=== PATIENT | female | born 2000 | race Caucasian/White ===

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

== ENCOUNTER → 2021-11-13 01:52 | Outpatient (CLI) | payer BC, MEDICAID, SELFPAY ==
[2021-11-13 11:13] LABS: SARS-CoV-2 RNA PCR Negative
== END ==
PROVIDERS: PCP Family Medicine; Visit Provider Surgery
DX: K82.8 Other specified diseases of gallbladder (principal); Z01.812 Encounter for preprocedural laboratory examination; Z20.822 Contact with and (suspected) exposure to COVID-19
CPT/HCPCS: C9803; U0003; U0005

== ENCOUNTER 2021-11-13 08:38 | Outpatient (CLI) | payer BC, MEDICAID, SELFPAY ==
[2021-11-13 09:14] LABS: Alanine Aminotransferase 16 U/L (4-35); Alkaline Phosphatase 104 U/L (38-126); Amylase 97 U/L (30-110); Aspartate Amino Transferase 18 U/L (14-36); Bilirubin,Total 0.4 mg/dL (0.2-1.3); Lipase 54 U/L (23-300)
== END 2021-11-13 08:39 | disposition home or self-care (01) ==
LOC: ANHSURGERY 08:43
PROVIDERS: PCP Family Medicine; Visit Provider Surgery
DX: K82.8 Other specified diseases of gallbladder (principal); Z01.818 Encounter for other preprocedural examination
CPT/HCPCS: 36415; 80076; 82150; 83690; 86850; 86900; 86901

== ENCOUNTER 2021-11-16 02:11 | Day surgery (SDC) | payer BC, MEDICAID, SELFPAY ==
--- NOTE | 2021-11-12 16:29 | SUR.PREOP ---
Report to the Outpatient Waiting Room, entrance under the green pavilion located off [facility], at time 11:30AM on date 11/16/21. OR Time: 1:30PM. - You and your visitor will be asked a series of questions to screen for COVID 19 for your protection. - A mask is required within the hospital. Preoperative COVID Testing Requirements: No COVID Test needed if: (proof is required; if not received patient will have Rapid Test prior to entry) - Patient has received COVID Vaccine at least 14 days prior to procedure date or - Patient has positive COVID test result within last 90 days of surgery date. COVID Test needed if above criteria is not met If not COVID vaccinated a COVID test must be conducted within 72 hours of surgery and patient is asked to isolate self from time of testing until procedure. You will go to the [facility] for your COVID testing. The [facility] Testing site is located at the corner of [address] [facility]. You will only be called if COVID results are positive and your surgeon may reschedule your elective surgery date. Patients may have clear liquids (water, carbonated beverages, clear teas, apple juice) until 3 hours prior to surgery with a maximum of 20 ounces. - NO CLEAR LIQUIDS AFTER 10:30AM - No food from midnight until time of surgery - Infants may have breast milk until 4 hours before surgery, formula 6 hours prior to surgery. - Children will be allowed to drink immediately following surgery. If applicable, please bring a bottle or sippy cup to assist with drinking. Juice, water, soda, and popsicles are readily available. For infants on formula, please bring formula the day of surgery. Pacifiers are allowed. Take the following medications with a SIP of water the morning of surgery: SERTRALINE Medications to discontinue per physician Date to take last dose Please no make-up, nail maori, hairspray, perfume, deodorant, or body powder the day of surgery. No jewelry (including any body piercings) or valuables the day of surgery, leave them at home. Please take a shower or bath the night before, or the morning of, surgery with an antibacterial soap. Wear comfortable, loose fitting clothing. Children are encouraged to wear pajamas. - Jewelry must be removed prior to entering the operating room. Rings and piercings that are not removed may be cut off. - The hospital will not accept responsibility for valuables. - Please leave all valuables, including medications, at home the day of surgery. If you are going home after surgery, a licensed food mobile driver must drive you home. - NO public transportation without another adult. - We recommend that an adult stay with you for 24 hours following discharge. - We also recommend that you do not drive, make important decision, drink alcoholic beverages, or take any drugs that were not prescribed by your health care provider for at least 24 hours after your discharge time. For Pediatric surgeries, we recommend two adults accompany the child home (only one inside the building at this time). One visitor will be allowed to accompany the patient into the hospital. Patients visitor will be instructed to remain with patient at all times or leave the building. We will allow the visitor to come back to the postoperative area when patient is ready. Follow any additional instructions given to you from your surgeon. Telephone instructions given to BARRY ODELL and asked if any additional questions and then verbalized understanding. Patient advised to call surgeon office or pre surgery nurse liaison [phone] if any additional questions.
[2021-11-12 16:45] VITALS: BMI 22.8
[2021-11-16] VITALS (10 sets, daily range): BP systolic 104–120; BP diastolic 57–92; PULSE 60–86; RESP 13–22; TEMP 36.3–36.4; O2SAT 99–100
[2021-11-16] MEDS: ACETAMINOPHEN 500 MG TABLET 1000 MG PO (12:10)
--- NOTE | 2021-11-16 12:34 | WPDANESEPPF ---
Anes - Initial Pre Proc Eval Procedure: Operation Date: 11/16/21 13:30 Proposed Procedures p Laparoscopic Cholecystectomy, Possible Open - Rodriguez Foley DO Date/Time: 11/16/21 12:34 Surgeon: Rodriguez Foley DO Pre Op Diagnosis: biliary dyskenisia, gallbladder sludge Patient Data Age: 21 Gender: F Height: 1.7 m Weight: 66 kg Allergies Allergy/AdvReac Type Severity Reaction Status Date / Time tramadol Allergy Unknown Hives Verified 11/16/21 11:59 Home Medications Medication Instructions Recorded Confirmed Type sertraline 100 mg tablet 100 mg PO HS 12/21/19 11/16/21 History levonorgestrel-ethinyl estrad 1 patch TOPICAL WEEKLY 11/12/21 11/16/21 History [Twirla] Patient hx anesthesia problems: post op nausea/vomiting Family hx anesthesia problems: none Results Review: All pre-operative results and documents have been reviewed as part of the pre-operative evaluation. [facility] Past Medical History Medical History Anxiety Asthma Depression History of vaginal delivery x 1 Irritable bowel uterine contractions in third trimester, antepartum Surgical History Surgical History [place] teeth removed Family History Family History Grandparent Diabetes mellitus Acute myocardial infarction Hypertension Grandparent Diabetes mellitus Acute myocardial infarction Heart disease Hypertension Grandparent Diabetes mellitus Degenerative disc disease Arthritis Fibromyalgia Sibling Stillborn, normal Sibling Anxiety Grandparent Stented coronary artery Hx of CABG Social History Social History Smoking status: Current every day smoker Tobacco type: e-cigarettes/vaping Second hand tobacco smoke exposure: No Additional smoking assessment comments: I VAPE ALL DAY Substance use: never Gender identity (if verbalized by the patient): Female Spiritual care concerns: No Anes - Eval Final PreProcedure Day of Procedure 11/16/21 12:34 Patient weight: normal Heart: regular rate and rhythm Lungs: clear to auscultation and normal air movement Airway: Mallampati scale class II Neurological: alert and oriented Last oral intake: >/= 8 hours ASA classification: II Emergent: no Anesthetic plan: proceed Anesthesia type and monitoring: general ETT and standard monitoring Results Review: All pre-operative results and documents have been reviewed as part of the pre-operative evaluation. Informed Consent: The patient's anesthetic plan and its attendant risks and benefits were discussed with the patient/family/POA. Questions were solicited and answers provided to the satisfaction of the patient/family/POA.
[2021-11-16] MEDS: LACTATED RINGERS 1,000 ML 30 ML IV CONT (12:38)
[2021-11-16] MEDS: SCOPOLAMINE 1.5 MG PATCH TRANSDERM (12:55)
[2021-11-16] MEDS: KETOROLAC 15 MG/ML VIAL (*BKC) IV PUSH (12:58)
--- NOTE | 2021-11-16 13:18 | WPDHPUPDATE1 ---
History and Physical Update Update Date/Time: 11/16/21 13:18 History and Physical has been reviewed, including an updated exam of the patient. There are NO changes in the patient's condition. Risks, benefits, and alternatives have been discussed and questions answered. Patient agrees to proceed with procedure.
[2021-11-16] MEDS: ceFAZolin 2 GM/D5W 50 ML 2 GM/50 ML BAG IVPB (13:33)
[2021-11-16] MEDS: BUPIVACAINE/EPINEPHRINE 0.25% 10 ML VIAL 30 ML INFILTRATE (14:03)
--- NOTE | 2021-11-16 14:53 | W.PM.PROC2 ---
Procedure Note - Detailed Date of Procedure 11/16/21 Pre-op Diagnosis biliary dyskenisia, gallbladder sludge Post-op Diagnosis Same Procedure Performed Laparoscopic cholecystectomy Surgeon Rodriguez Foley, DO Anesthesia General and Local (0.5% bupivacaine) Indications this is a 21-year-old woman who presented with upper abdominal pain with nausea and vomiting for the past couple months. She has had fairly persistent symptoms despite trying to stay on a low-fat diet. She does state that greasy or fatty foods make her symptoms much worse. She had gallbladder ultrasound and HIDA scan done which showed evidence of gallbladder sludge and decreased gallbladder ejection fraction. Discussions were made with the patient about treatment options and decision was made to proceed with laparoscopic cholecystectomy, possible open. Findings Laparoscopic cholecystectomy was performed. The patient's gallbladder did have a few pericholecystic adhesions. The gallbladder neck and proximal cystic duct appeared somewhat elongated and slightly dilated, but the cystic duct did appear to taper down to about 3-5 mm in size. No other significant abnormalities were noted. The gallbladder was removed and sent to the lab for pathology. Description of Procedure Procedure as well as risks, benefits, and alternatives were discussed with patient. Written consent was obtained and placed in chart prior to procedure. The patient was brought back to surgical suite. Patient was placed in supine position on operating table. Time-out was done to confirm patient and procedure. Patient was then intubated by the anesthesia department. Abdomen was prepped and draped in sterile fashion using chlorhexidine prep. 0.5% bupivacaine with epinephrine was infiltrated at each site of incision. An 11 millimeter vertical incision was made at the inferior portion of the umbilicus using a 15 blade scalpel. Blunt dissection was carried down to the linea alba. The linea alba was then incised using a 15 blade scalpel. The peritoneum was then bluntly entered. An 11 millimeter trocar was inserted and carbon dioxide insufflation was used to create a pneumoperitoneum. The camera was inserted and the abdomen was inspected. The patient was placed in reverse Trendelenberg position and rotated slightly to the left. A 5 millimeter incision was made in the epigastric region, and a 5 millimeter trocar was inserted under direct visualization. Two 5 millimeter incisions were made in the right upper quadrant, and two 5 millimeter trocars were inserted under direct visualization. The gallbladder was identified and grasped at the fundus and retracted superiorly. It was then grasped at the infundibulum retracted laterally. Careful dissection around the neck of the gallbladder was performed using blunt dissection with a [place] grasper and hook electrocautery. The cystic duct was identified, and a window was created behind it. The cystic artery was also identified and a window was created behind it. The critical view of safety was identified, visualizing the cystic duct running directly into the neck of the gallbladder, and the cystic artery running directly into the wall of the gallbladder. A 5 millimeter clip sanitary plumber was then used to place 2 clips proximally and 1 clip distally on both the cystic duct and cystic artery. They were then both transected using endoscopic scissors. Once safely away from the maría hepatitis, the gallbladder was dissected free from the liver bed using hook electrocautery. Hemostasis was achieved along the way. The gallbladder was removed completely and then removed through the umbilical port. The liver bed was then inspected. Hemostasis appeared adequate, and our clips appeared secure. The area was gently irrigated with sterile saline. No other abnormalities were seen. The patient was flattened out in bed, and 1 final inspection was made around the abdominal cavity. The ports wer
[2021-11-16] MEDS: ONDANSETRON INJ 4 MG/2 ML VIAL IV PUSH (15:11)
[2021-11-16] MEDS: fentaNYL CITRATE INJ (*CRX) 100 MCG/2 ML VIAL 25 MCG IV PUSH ×4 (15:13→15:50)
[2021-11-16] MEDS: diphenhydrAMINE HCl INJ 50 MG/ML VIAL 25 MG IV PUSH (15:30)
--- NOTE | 2021-11-16 15:37 | SUR.PHASEI ---
delay for going to OP due to pt nausea and pain control.
[2021-11-16] MEDS: oxyCODONE HCL (*CRX) 5 MG TAB IR PO (16:34)
--- NOTE | 2021-11-16 17:18 | SUR.PHASEII ---
delay pt discharge due to pt getting oxycodone that flagged with her allergy with hives, ok to give per md fleming. pt stayed for 30 min after admin with no signs of hives or other allergy symptoms, VSS.
== END 2021-11-16 17:15 | disposition home or self-care (01) ==
PROVIDERS: PCP Family Medicine; Visit Provider Surgery
PROC: 0FT44ZZ Resection of Gallbladder, Percutaneous Endoscopic Approach (ICD-10-PCS; CPT 47562; principal; 2021-11-16 13:30)
DX: K81.1 Chronic cholecystitis (principal); F41.8 Other specified anxiety disorders; F17.290 Nicotine dependence, other tobacco product, uncomplicated
CPT/HCPCS: 47562; 88304; A9270; J0690; J1100; J1200; J1885; J2250; J2405; J2704; J2710; J3010; J7030; J7120

== ENCOUNTER 2021-11-20 11:16 | Emergency (ER) | payer BC, MEDICAID, SELFPAY ==
--- NOTE | ~2021-11-20 | XR_ITS ---
EXAMINATION: XR chest 1V portable DATE: 11/20/2021 13:10 INDICATION: Upper abdominal pain radiating to the chest post recent gallbladder surgery TECHNIQUE: AP view of the chest was obtained COMPARISON: None FINDINGS: The lungs are clear with no focal airspace opacities, pulmonary edema, pleural effusion or pneumothor ax. The cardiomediastinal silhouette is normal. Small amount of free intraperitoneal gas below the di aphragm on both the left and right. Mild levocurvature at the thoracolumbar junction. IMPRESSION: 1. Free intraperitoneal gas below the diaphragm likely related to reported recent gallbladder surgery . 2. No acute cardiopulmonary disease. Reviewed, dictated and finalized at location A. IMPRESSION: 1. Free intraperitoneal gas below the diaphragm likely related to reported rece nt gallbladder surgery. 2. No acute cardiopulmonary disease.
--- NOTE | ~2021-11-20 | CT_ITS ---
EXAMINATION: CT abdomen pelvis w con DATE: 11/20/2021 13:10 INDICATION: Upper abdominal pain post recent gallbladder surgery with nausea, vomiting and diarrhea TECHNIQUE: Computed tomography (CT) of the abdomen and pelvis was performed without intravenous contr ast. Automated exposure control and iterative reconstruction technique were employed. The dose-length product was 253.47 mGy-cm. COMPARISON: None FINDINGS: Lung bases are clear. Heart size is normal. No pericardial or pleural effusion. Small amount of free intraperitoneal gas in the upper abdomen likely related to reported recent cholecystectomy with surgi ho clips seen at the gallbladder fossa. Small amount of free fluid in the cul-de-sac. No abscess. Li cristino, spleen, pancreas, bilateral adrenal glands and kidneys are normal. No intra or extrahepatic bili isael ductal dilation. No bowel obstruction. Normal appendix. Bladder, anteverted uterus and bilateral adnexa are unremarkable. No pathologically enlarged abdominal or pelvic lymphadenopathy. Mild lumbar dextrocurvature. IMPRESSION: 1. Small amount of ascites in the cul-de-sac and small amount of free intraperitoneal gas in the uppe r abdomen likely related to reported recent gallbladder surgery. Reviewed, dictated and finalized at location A. IMPRESSION: 1. Small amount of ascites in the cul-de-sac and small amount of free intraperi toneal gas in the upper abdomen likely related to reported recent gallbladder s urgery.
[2021-11-20 11:32] VITALS: BP 126/72; PULSE 61; RESP 16; TEMP 36.6; O2SAT 100
--- NOTE | 2021-11-20 11:43 | ECG_ITS ---
Measurements Intervals Viola Rate: 55 P: 67 GA: 135 QRS: 72 QRSD: 102 T: 74 QT: 394 QTc: 378 Interpretive Statements SINUS BRADYCARDIA, OTHERWISE NORMAL EKG NO PREVIOUS ECG AVAILABLE FOR COMPARISON Electronically Signed On 11-20-2021 12:09:52 CDT by Mckenzie Enciso M.D.
--- NOTE | 2021-11-20 11:54 | ED.ABDPAIN ---
HPI - Abdominal Pain General Chief Complaint: Abdominal Pain Stated Complaint: surgery on Friday/vomiting & diarrhea w abd cramp Time Seen by Provider: 11/20/21 11:18 Source: patient and RN notes reviewed Mode of arrival: ambulatory Limitations: no limitations History of Present Illness MD elicited complaint: abdominal pain Pertinent past history: other (recent cholecystectomy with increasing nausea, vomiting and loose stools.) Onset (ago): hour(s) (6) Pain Consistency: constant Location: chest, epigastric, LUQ and RUQ Severity: moderate Pain scale (0-10): 7 Quality: cramping, aching and fullness Radiation: chest Migration to: no migration Exacerbating factors: nothing Relieving factors: nothing Associated symptoms: nausea and vomiting Related Data Patient : No Home Medications Medication Instructions Recorded Confirmed sertraline 100 mg tablet 100 mg PO HS 12/21/19 11/20/21 Twirla 1 patch TOPICAL WEEKLY 11/12/21 11/20/21 Allergies Allergy/AdvReac Type Severity Reaction Status Date / Time tramadol Allergy Unknown Hives Verified 11/20/21 11:37 Review of Systems Review of Systems: All systems reviewed & are unremarkable except as noted in HPI and below Gastrointestinal: Gastrointestinal: Reports abdominal pain, Reports diarrhea, Reports nausea and Reports vomiting PMFSH Past Medical History Medical History Abdominal pain Anxiety Asthma Depression History of vaginal delivery x 1 Irritable bowel uterine contractions in third trimester, antepartum Surgical History Surgical History Mulino teeth removed Family History Family History Grandparent Diabetes mellitus Acute myocardial infarction Hypertension Grandparent Diabetes mellitus Acute myocardial infarction Heart disease Hypertension Grandparent Diabetes mellitus Degenerative disc disease Arthritis Fibromyalgia Sibling Stillborn, normal Sibling Anxiety Grandparent Stented coronary artery Hx of CABG Social History Social History Smoking status: Current every day smoker Tobacco type: e-cigarettes/vaping Second hand tobacco smoke exposure: No Additional smoking assessment comments: I VAPE ALL DAY Substance use: never Gender identity (if verbalized by the patient): Female Spiritual care concerns: No Exam Const: General: no acute distress and alert Nutritional Appearance: well nourished Orientation/consciousness: patient oriented x3 Limitations: no limitations HENMT: Head: normal to inspection Ears: external ears normal, TM's normal bilaterally and EAC's normal General nose exam: Normal external nose present and Normal nares present Face and sinus: normal facial exam and sinuses nontender Mouth: Yes lip normal and Yes moist mucous membranes Teeth and gingiva: dentition normal Eyes: Conjunctivae: conjunctivae normal Pupils: Equal, round and reactive pupils present EOM: EOMs intact bilaterally Neck: Neck: normal visual inspection and no lymphadenopathy Other: supple Chest: Chest palpation & inspection: normal inspection of the chest Resp: Effort & Inspection: normal respiratory effort Auscultation: clear to auscultation bilaterally Cardio: Rate: regular rate Rhythm: regular rhythm GI: GI Palp: Yes Soft to palpation and Yes Tenderness to palpation present (GI) (epigastric and both upper quadrant mild tenderness. ) Auscultation: normal bowel sounds : General: Yes bladder normal to palpation and Yes no CVA tenderness Back/Spine/Pelvis: Back: no CVA tenderness Skin: General skin exam: normal color Rashes: no rashes Neuro: General: patient oriented x3, moves all extremities, no meningeal signs, no focal motor deficits and CN's II-XI intact bilaterally Extrem
[2021-11-20 12:06] LABS: Basophils Absolute Auto 0.02 K/mm3 (0.00-0.10); Basophils Percent Auto 0.2 % (0.0-1.0); Eosinophils Absolute Auto 0.08 K/mm3 (0.02-0.50); Eosinophils Percent Auto 0.8 % (1.0-6.0); Hematocrit 40.1 % (35.0-49.0); Hemoglobin 13.1 g/dL (12.0-15.0); Immature Granulocyte Absolute 0.05 K/mm3 (0.00-0.00); Immature Granulocyte Percent A 0.5 % (0.0-0.0); Lymphocytes Absolute Auto 1.72 K/mm3 (1.10-4.50); Lymphocytes Percent Auto 16.1 % (18.0-42.0); Mean Corpuscular HGB Conc 32.7 g/dL (32.0-36.0); Mean Corpuscular Volume 94.8 fL (78.0-102.0); Monocytes Absolute Auto 0.42 K/mm3 (0.10-0.90); Monocytes Percent Auto 3.9 % (2.0-11.0); Neutrophils Absolute Auto 8.4 K/mm3 (1.7-7.2); Neutrophils Percent Auto 78.5 % (50.0-70.0); Platelet Count Result 315 K/mm3 (150-420); Red Blood Count 4.23 M/mm3 (4.20-5.40); Red Cell Distribution Width 14.6 % (11.6-14.4); White Blood Count 10.7 K/mm3 (4.8-10.8)
[2021-11-20 12:08] LABS: Add Urine Microscopic? YES; Appearance Urine Cloudy (Clear); Bilirubin Urine 1+ (Negative); Blood Urine Negative (Negative); Color Urine Light Yellow (Yellow); Glucose Urine UA Negative (Negative); Ketones Urine Trace (Negative); Leukocyte Esterase Ur 3+ LEU/UL (Negative); Nitrate Urine Negative (Negative); Protein Urine Trace (Negative); Specific Grav Ur 1.025 (1.010-1.020); pH Urine 6.5 (5.0-8.0)
[2021-11-20] MEDS: MORPHINE SULFATE (*CRX) 4 MG/ML INJ 2 MG IV PUSH (12:11)
[2021-11-20] MEDS: SODIUM CHLORIDE 0.9% IV 1,000 ML 999 ML IV CONT (12:12)
[2021-11-20] MEDS: PANTOPRAZOLE SODIUM IV 40 MG VIAL IV PUSH (12:12)
[2021-11-20] MEDS: ONDANSETRON INJ 4 MG/2 ML VIAL IV PUSH (12:12)
[2021-11-20 12:14] LABS: Bacteria Urine 1+ /hpf; Squamous Epithelial Cell Urine Many /hpf (Few); WBC Urine 21-30 /hpf (0-3)
[2021-11-20 12:25] LABS: Alanine Aminotransferase 30 U/L (14-59); Albumin Level 3.1 g/dL (3.4-5.0); Alkaline Phosphatase 93 U/L (46-116); Anion Gap 9 mmol/L (8-16); Aspartate Amino Transferase 13 U/L (15-37); Bilirubin,Total 0.3 mg/dL (0.00-1.00); Blood Urea Nitrogen 10 mg/dL (7-18); Carbon Dioxide 29 mmol/L (21-32); Chloride 103 mmol/L (98-108); Estimated CRCL calculation 98 ml/min; Estimated Glomerular Filt Rate > 60; Glucose 105 mg/dL (70-99); Lipase 44 U/L (73-393); Osmolality Calculated 291 mOsm/kg (285-295); Potassium 3.8 mmol/L (3.5-5.1); Sodium 141 mmol/L (136-145)
[2021-11-20 12:25] LABS: Urine Pregnancy Test Negative
[2021-11-20 12:26] LABS: Pregnancy On Board Control Positive
[2021-11-20 12:27] LABS: Troponin I < 4.0 ng/L (0.00-60.4)
--- NOTE | 2021-11-20 15:24 | PC.NURSE ---
RN made second attempt for call to sales contract administrator surgeon
--- NOTE | 2021-11-20 16:16 | PC.NURSE ---
surgeon called back on patient
[2021-11-20 16:50] VITALS: BP 105/57; PULSE 57; RESP 16; TEMP 36.8; O2SAT 100
== END 2021-11-20 16:52 | disposition home or self-care (01) ==
PROVIDERS: Emergency Provider Emergency Medicine; PCP Family Medicine
DX: N39.0 Urinary tract infection, site not specified (principal); R10.9 Unspecified abdominal pain
CPT/HCPCS: 36415; 71045; 74177; 80053; 81001; 81025; 83605; 83690; 84484; 85025; 87086; 87088; 93005; 96361; 96365; 96375; 99284; C9113; J0696; J2270; J2405; J7030; Q9967

== ENCOUNTER → 2022-05-31 12:56 | Outpatient (CLI) | payer BC, MEDICAID, SELFPAY ==
--- NOTE | ~2022-05-31 | US_ITS ---
EXAMINATION: US OB transvaginal DATE: 05/31/2022 14:02 INDICATION: Evaluate viability. Gestational dating. TECHNIQUE: Real-time transvaginal obstetric ultrasound. FINDINGS: No prior studies for comparison. The uterus measures 8.6 x 6.5 x 7.3 cm. There is an intrauterine gestational sac, with pole andrew ntified. The crown rump length measures 4.11 cm, which correlates with a estimated gestational age o f 11 weeks 0 days. heart tones are identified measuring 173 BPM. Ovaries are not visualized. IMPRESSION: 1. SL IUP with an EGA of 11 weeks, 0 days (EDC by current ultrasound of 12/20/2022). Reviewed, dictated and finalized at location A. IMPRESSION: 1. SL IUP with an EGA of 11 weeks, 0 days (EDC by current ultrasound of 12/21/19).
== END ==
PROVIDERS: PCP Student in an Organized Health Care Education/Training Program; Visit Provider Student in an Organized Health Care Education/Training Program
DX: Z36.9 Encounter for antenatal screening, unspecified (principal); Z3A.11 11 weeks gestation of pregnancy
CPT/HCPCS: 76817

== ENCOUNTER 2022-06-12 13:13 | Outpatient (CLI) | payer BC, MEDICAID, SELFPAY ==
[2022-06-12 13:46] LABS: Basophils Percent Auto 0.3 % (0.2-1.2); Eosinophils Percent Auto 0.1 % (0-4.4); Hematocrit 39.9 % (37.0-47.0); Hemoglobin 13.2 g/dL (12.0-15.0); Immature Granulocyte Absolute 0.04 K/mm3 (0.00-0.031); Immature Granulocyte Percent A 0.4 % (0-0.5); Lymphocytes Absolute Auto 2.03 K/mm3 (0.9-3.2); Lymphocytes Percent Auto 18.1 % (18.3-44.2); Mean Corpuscular HGB Conc 33.1 g/dl (32-36); Mean Corpuscular Hemoglobin 31.7 pg (26-34); Mean Corpuscular Volume 95.7 fl (80-100); Mean Platelet Volume 9.5 fl (7.4-10.4); Monocytes Absolute Auto 0.5 K/mm3 (0.1-0.6); Monocytes Percent Auto 4.2 % (2.6-8.5); Neutrophils Absolute Auto 8.6 K/mm3 (1.3-6.7); Neutrophils Percent Auto 76.9 % (45.5-73.1); Platelet Count Result 249 k/mm3 (150-375); Red Blood Count 4.17 M/mm3 (4.2-5.4); Red Cell Distribution Width 14.5 % (11.5-14.5); White Blood Count 11.2 K/mm3 (4.5-10.0)
[2022-06-12 14:28] LABS: Thyroid Stimulating Hormone 0.701 uIU/mL (0.465-4.680)
[2022-06-12 14:37] LABS: HIV 1/2 Ab P24 Ag Result Negative (Negative)
[2022-06-12 14:47] LABS: Hepatitis B Surface Antigen Negative (Negative); Rubella IgG Antibody 27.5 IU/ML
[2022-06-12 15:04] LABS: Hepatitis C Virus Antibody Negative (Negative)
[2022-06-13 07:58] LABS: Rapid Plasma Reagin Non-Reactive (NonReactive)
[2022-06-16 14:28] LABS: Varicella IgG Antibody <135.00 Index (>=165.00)
== END 2022-06-12 13:14 | disposition home or self-care (01) ==
PROVIDERS: PCP Student in an Organized Health Care Education/Training Program; Visit Provider Student in an Organized Health Care Education/Training Program
DX: Z34.90 Encounter for supervision of normal pregnancy, unspecified, unspecified trimester (principal); Z3A.00 Weeks of gestation of pregnancy not specified
CPT/HCPCS: 36415; 82306; 84443; 85025; 86592; 86703; 86762; 86787; 86803; 86850; 86900; 86901; 87086; 87340; G0432

== ENCOUNTER 2022-09-17 15:54 | Observation (INO) | payer BC, MEDICAID, SELFPAY ==
[2022-09-17] VITALS (11 sets, daily range): BP systolic 96–128; BP diastolic 43–68; PULSE 81–97; TEMP 36.6; BMI 21.3
[2022-09-17] MEDS: DEXTROSE 5%/LACTATED RINGERS 1,000 ML 100 ML IV CONT (16:53)
[2022-09-17 16:54] LABS: Hematocrit 37.2 % (37.0-47.0); Mean Corpuscular HGB Conc 32.3 g/dl (32-36); Mean Corpuscular Hemoglobin 30.5 pg (26-34); Mean Corpuscular Volume 94.4 fl (80-100); Platelet Count Result 309 k/mm3 (150-375); Red Blood Count 3.94 M/mm3 (4.2-5.4); Red Cell Distribution Width 13.9 % (11.5-14.5); White Blood Count 16.4 K/mm3 (4.5-10.0)
[2022-09-17] MEDS: ONDANSETRON INJ 4 MG/2 ML VIAL IV PUSH (16:54)
--- NOTE | 2022-09-17 16:59 | OBADM ---
This patient, Kiesha Swanson, admitted to the OB room [facility] Post 117 for observation. Patient/family oriented to hospital policies and general routines including ID bracelet, bed and alarms, visiting hours, pain management, procedures, bathroom and other care routines, personal items, smoking policy, room service/diet, and visiting hours. Patient/Family are encouraged to report perceived risks to care and to ask questions if they do not understand what they are told or what they should do.
[2022-09-17 17:05] LABS: Alanine Aminotransferase 17 U/L (6-35); Albumin Level 3.8 g/dL (3.5-5.1); Alkaline Phosphatase 125 U/L (38-126); Anion Gap 5 mmol/L (8-16); Aspartate Amino Transferase 19 U/L (14-36); Bilirubin,Total 0.4 mg/dL (0.2-1.3); Blood Urea Nitrogen 7 mg/dL (7-17); Calcium 8.4 mg/dL (8.4-10.2); Carbon Dioxide 25 mmol/L (22-30); Chloride 104 mmol/L (98-107); Estimated CRCL calculation 169 ml/min; Estimated Glomerular Filt Rate > 60; Glucose 100 mg/dL (65-110); Potassium 3.1 mmol/L (3.4-5.0); Sodium 134 mmol/L (137-145)
[2022-09-17 17:31] LABS: Influenza A QL RT-PCR Negative (Negative); Influenza B QL RT-PCR Negative (Negative); SARS-CoV-2 RNA PCR Negative
[2022-09-17 18:11] LABS: Band Neutrophils Percent 6 % (0-6); Lymphocytes Absolute Manual 0.82 K/mm3 (1.1-4.5); Monocytes Absolute Manual 0.49 K/mm3 (0.1-0.90); Monocytes Percent Manual 3 % (3-9); Neutrophils Absolute Manual 15.08 K/mm3 (1.7-7.2); Neutrophils Percent Manual 86 % (46-73); Platelet Estimate Adequate (Adequate); Total Cells Counted 100
[2022-09-17 18:12] LABS: Schistocytes None Seen (NORMAL)
[2022-09-17] MEDS: POTASSIUM CHLORIDE INJ 40 MEQ in SODIUM CHLORIDE 0.9% IV 500 ML 130 MEQ IVPB (18:29)
--- NOTE | 2022-09-17 18:40 | PC.NURSE ---
1825- pt in bed sleeping quietly. pt is taking in small amounts of ice chips.
--- NOTE | 2022-09-17 20:10 | PC.NURSE ---
2009- Dr. Winn called in for update. labs reviewed. will continue to monitor pt and if pt feeling better and able to keep fluids down pt may d/c home with RX for zofran x couple days
--- NOTE | 2022-09-17 20:43 | PC.NURSE ---
pt states that she still feels nauseous but feels like she wants to d/c home due to her mom and child being out in the car. pt agrees to stay a little longer for fluids and will reassess in 30 minutes.
--- NOTE | 2022-09-17 21:27 | PC.NURSE ---
2119- called Dr. Winn- updated on pt status. pt wanting to d/c home. verbal order received to d/c home with instructions to po hydrate and increase potassium intake with potassium rich foods. pedialyte/gatorade for hydration.
--- NOTE | 2022-10-11 10:53 | PM.OBTRLD ---
OB - Triage/Final Diagnosis Visit Information Comments/Additional reasons for admission: I have assessed the risk for this patient, Kiesha Swanson, and determined that she would benefit from observation care. Evaluation Laboratory results: Laboratory Tests 09/17/22 09/17/22 09/17/22 16:27 16:27 16:27 WBC 16.4 H RBC 3.94 L Hgb 12.0 Hct 37.2 MCV 94.4 MCH 30.5 MCHC 32.3 RDW 13.9 Plt Count 309 MPV 9.0 Immature Gran % (Auto) Not Reportable Neut % (Auto) Not Reportable Lymph % (Auto) Not Reportable [place] % (Auto) Not Reportable Eos % (Auto) Not Reportable Baso % (Auto) Not Reportable Lymph # (Auto) Not Reportable [place] # (Auto) Not Reportable Eos # (Auto) Not Reportable Baso # (Auto) Not Reportable Abs Immat Gran (auto) Not Reportable Absolute Neuts (auto) Not Reportable Absolute Nucleated RBC Not Reportable Total Counted 100 Neutrophils % (Manual) 86 H Band Neutrophils % 6 Lymphocytes % (Manual) 5.0 L Monocytes % (Manual) 3 Nucleated RBC % Not Reportable Abs Neuts (Manual) 15.08 H Abs Lymphs (Manual) 0.82 L Abs Monocytes (Manual) 0.49 Platelet Estimate Adequate Schistocytes None seen Sodium 134 L Potassium 3.1 L Chloride 104 Carbon Dioxide 25 Anion Gap 5 L BUN 7 D Creatinine 0.40 L Estim Creat Clear Calc 169 Estimated GFR > 60 Glucose 100 Calcium 8.4 Total Bilirubin 0.4 AST 19 ALT 17 Alkaline Phosphatase 125 Total Protein 7.0 Albumin 3.8 Influenza A (RT-PCR) Negative Influenza B (RT-PCR) Negative SARS-CoV-2 RNA (RT-PCR) Negative Final Diagnosis (1) Viral gastroenteritis: Code(s): A08.4 - Viral intestinal infection, unspecified Status: Acute
== END 2022-09-17 21:31 | disposition home or self-care (01) ==
PROVIDERS: Admitting Provider Obstetrics & Gynecology; Visit Provider Obstetrics & Gynecology
DX: O26.892 Other specified pregnancy related conditions, second trimester (principal); A08.4 Viral intestinal infection, unspecified; Z3A.26 26 weeks gestation of pregnancy
CPT/HCPCS: 36415; 80053; 85025; 87636; 96361; 96374; 96375; G0378; G0379; J2405; J3480; J7040; J7121

== ENCOUNTER 2022-10-22 15:58 | Outpatient (CLI) | payer BC, MEDICAID, SELFPAY ==
[2022-10-22 15:03] LABS: Basophils Percent Auto 0.3 % (0.2-1.2); Eosinophils Percent Auto 0.2 % (0-4.4); Hematocrit 32.9 % (37.0-47.0); Hemoglobin 10.3 g/dL (12.0-15.0); Immature Granulocyte Absolute 0.11 K/mm3 (0.00-0.031); Immature Granulocyte Percent A 0.9 % (0-0.5); Lymphocytes Absolute Auto 2.73 K/mm3 (0.9-3.2); Lymphocytes Percent Auto 21.1 % (18.3-44.2); Mean Corpuscular HGB Conc 31.3 g/dl (32-36); Mean Corpuscular Hemoglobin 28.4 pg (26-34); Mean Corpuscular Volume 90.6 fl (80-100); Mean Platelet Volume 9.6 fl (7.4-10.4); Monocytes Absolute Auto 0.7 K/mm3 (0.1-0.6); Monocytes Percent Auto 5.3 % (2.6-8.5); Neutrophils Absolute Auto 9.4 K/mm3 (1.3-6.7); Neutrophils Percent Auto 72.2 % (45.5-73.1); Platelet Count Result 323 k/mm3 (150-375); Red Blood Count 3.63 M/mm3 (4.2-5.4); Red Cell Distribution Width 15.1 % (11.5-14.5); White Blood Count 12.9 K/mm3 (4.5-10.0)
[2022-10-22 16:07] LABS: Basophils Percent Auto 0.2 % (0.2-1.2); Eosinophils Percent Auto 0.2 % (0-4.4); Hematocrit 33.9 % (37.0-47.0); Hemoglobin 10.6 g/dL (12.0-15.0); Immature Granulocyte Percent A 0.8 % (0-0.5); Lymphocytes Percent Auto 22.7 % (18.3-44.2); Mean Corpuscular HGB Conc 31.3 g/dl (32-36); Mean Corpuscular Hemoglobin 28.5 pg (26-34); Mean Corpuscular Volume 91.1 fl (80-100); Mean Platelet Volume 9.4 fl (7.4-10.4); Monocytes Absolute Auto 0.8 K/mm3 (0.1-0.6); Neutrophils Absolute Auto 9.3 K/mm3 (1.3-6.7); Neutrophils Percent Auto 70.1 % (45.5-73.1); Platelet Count Result 343 k/mm3 (150-375); Red Blood Count 3.72 M/mm3 (4.2-5.4); Red Cell Distribution Width 15.1 % (11.5-14.5); White Blood Count 13.2 K/mm3 (4.5-10.0)
[2022-10-22 16:09] LABS: Glucose 1 Hour PP 50gm Dose 118 mg/dL
[2022-10-22 16:59] LABS: HIV 1/2 Ab P24 Ag Result Negative (Negative)
[2022-10-23 16:22] LABS: Rapid Plasma Reagin Non-Reactive (NonReactive)
== END 2022-10-22 15:59 | disposition home or self-care (01) ==
LOC: ANHLAB 15:58
PROVIDERS: Registered Nurse; Visit Provider Obstetrics & Gynecology
DX: Z34.82 Encounter for supervision of other normal pregnancy, second trimester (principal); Z3A.00 Weeks of gestation of pregnancy not specified
CPT/HCPCS: 36415; 82947; 85025; 86592; 86703; G0432

== ENCOUNTER 2022-11-02 17:29 | Observation (INO) | payer BC, MEDICAID, SELFPAY ==
[2022-11-02] VITALS (7 sets, daily range): BP systolic 113–118; BP diastolic 62–73; PULSE 75–86; TEMP 36.4; BMI 23.4
--- NOTE | 2022-11-02 17:29 | LDADM ---
This patient, Kiesha Swanson, was admitted to [facility] on 11/02/22 at 17:29. Plans for labor, pain management and were discussed with patient. Pt states she has nausea vomiting for two days and started diarrhea this am. complains double vision and headaches. Patient/family oriented to hospital policies and general routines including ID bracelet, bed and alarms, visiting hours, pain management, procedures, bathroom and other care routines, personal items, smoking policy, room service/diet and guest tray routines, infant security routines, and visiting hours. Patient/Family are encouraged to report perceived risks to care and to ask questions if they do not understand what they are told or what they should do. See OBIX for further documentation.
[2022-11-02] MEDS: LACTATED RINGERS 1,000 ML 999 ML IV CONT (18:11)
[2022-11-02 18:15] LABS: Basophils Percent Auto 0.2 % (0.2-1.2); Eosinophils Percent Auto 0.3 % (0-4.4); Hemoglobin 10.1 g/dL (12.0-15.0); Immature Granulocyte Absolute 0.07 K/mm3 (0.00-0.031); Immature Granulocyte Percent A 0.7 % (0-0.5); Lymphocytes Absolute Auto 2.16 K/mm3 (0.9-3.2); Lymphocytes Percent Auto 21.5 % (18.3-44.2); Mean Corpuscular HGB Conc 31.6 g/dl (32-36); Mean Corpuscular Hemoglobin 27.7 pg (26-34); Mean Corpuscular Volume 87.7 fl (80-100); Mean Platelet Volume 9.4 fl (7.4-10.4); Monocytes Absolute Auto 0.7 K/mm3 (0.1-0.6); Monocytes Percent Auto 7.3 % (2.6-8.5); Neutrophils Absolute Auto 7.1 K/mm3 (1.3-6.7); Platelet Count Result 302 k/mm3 (150-375); Red Blood Count 3.65 M/mm3 (4.2-5.4); Red Cell Distribution Width 15.5 % (11.5-14.5); White Blood Count 10.1 K/mm3 (4.5-10.0)
[2022-11-02 18:19] LABS: Appearance Urine Clear (Clear); Bilirubin Urine Negative (Negative); Blood Urine Negative (Negative); Color Urine Yellow (Yellow); Glucose Urine UA Negative (Negative); Ketones Urine Negative (Negative); Leukocyte Esterase Ur Trace LEU/UL (NEGATIVE); Nitrate Urine Negative (Negative); Protein Urine Negative (Negative); Specific Grav Ur 1.015 (1.001-1.035); Urobilinogen Urine 0.2 mg/dL (<2.0); pH Urine 7.5 (5.0-9.0)
[2022-11-02 18:24] LABS: Mucus Urine Rare /lpf; RBC Urine 0-2 /hpf (0-2); Squamous Epithelial Cell Urine Few /hpf (Few); WBC Urine 0-3 /hpf (0-3)
[2022-11-02 18:26] LABS: Alanine Aminotransferase 17 U/L (6-35); Albumin Level 3.5 g/dL (3.5-5.1); Alkaline Phosphatase 138 U/L (38-126); Anion Gap 3 mmol/L (8-16); Aspartate Amino Transferase 17 U/L (14-36); Bilirubin,Total 0.5 mg/dL (0.2-1.3); Blood Urea Nitrogen 5 mg/dL (7-17); Calcium 8.5 mg/dL (8.4-10.2); Carbon Dioxide 25 mmol/L (22-30); Chloride 103 mmol/L (98-107); Estimated CRCL calculation 176 ml/min; Estimated Glomerular Filt Rate > 60; Glucose 100 mg/dL (65-110); Potassium 3.1 mmol/L (3.4-5.0); Sodium 131 mmol/L (137-145); Uric Acid 3.5 mg/dL (2.5-7.5)
[2022-11-02] MEDS: ONDANSETRON INJ 4 MG/2 ML VIAL IV PUSH (18:26)
[2022-11-02 18:27] LABS: Add Urine Microscopic? YES; Creatinine Urine 115.9 mg/dL; Total Protein Urine Random 9 mg/dL; Ur Ttl Prot Creatinine Ratio 0.08 mg/mg (0-0.20)
--- NOTE | 2022-11-02 18:30 | PC.NURSE ---
Axel crackers and peanut butter brought to patient. Pt has been able to keep down peanut butter crackers and water and states that her double vision is worse in the right eye than the left and it comes and goes.
--- NOTE | 2022-11-02 18:33 | PC.NURSE ---
Dr. Winn called via physician underwriter and informed of lab results, BP results, keeping down crackers and water, LR bolus almost complete with zofran administered IVP. Dr Winn orders for 40meq potassium orally and that she will send a prescription for patient to continue at home, for patient to make an appointment with her eye doctor even if she is up to date, and to make an appointment for the office to recheck electrolytes next week if she doesn't already have an appointment. Orders to discharge patient home once LR bolus and potassium are administered.
[2022-11-02] MEDS: POTASSIUM CHLORIDE 20 MEQ TABLET 40 MEQ PO (19:02)
--- NOTE | 2022-11-06 11:11 | PM.OBTRLD ---
OB - Triage/Final Diagnosis Visit Information Comments/Additional reasons for admission: I have assessed the risk for this patient, Kiesha Swanson, and determined that she would benefit from observation care. Evaluation Laboratory results: Laboratory Tests 11/02/22 11/02/22 11/02/22 17:58 17:58 17:58 WBC 10.1 H RBC 3.65 L Hgb 10.1 L Hct 32.0 L MCV 87.7 MCH 27.7 MCHC 31.6 L RDW 15.5 H Plt Count 302 MPV 9.4 Immature Gran % (Auto) 0.7 H Neut % (Auto) 70.0 Lymph % (Auto) 21.5 [place] % (Auto) 7.3 Eos % (Auto) 0.3 Baso % (Auto) 0.2 Lymph # (Auto) 2.16 [place] # (Auto) 0.7 H Eos # (Auto) 0.0 Baso # (Auto) 0.0 Abs Immat Gran (auto) 0.07 H Absolute Neuts (auto) 7.1 H Absolute Nucleated RBC 0.0 Nucleated RBC % 0.0 Sodium Potassium Chloride Carbon Dioxide Anion Gap BUN Creatinine Estim Creat Clear Calc Estimated GFR Glucose Uric Acid Calcium Total Bilirubin AST ALT Alkaline Phosphatase Total Protein Albumin Urine Color Yellow Urine Appearance Clear Urine pH 7.5 Ur Specific [place] 1.015 Urine Protein Negative Urine Glucose (UA) Negative Urine Ketones Negative Ur Blood (Man) Negative Urine Nitrate Negative Urine Bilirubin Negative Urine Urobilinogen 0.2 Ur Leukocyte Esterase Trace H Urine RBC 0-2 Urine WBC 0-3 Ur Squamous Epith Cells Few Urine Mucus Rare U Random Total Protein 9 Urine Creatinine 115.9 Protein/Creat Ratio 2 0.08 11/02/22 17:58 WBC RBC Hgb Hct MCV MCH MCHC RDW Plt Count MPV Immature Gran % (Auto) Neut % (Auto) Lymph % (Auto) [place] % (Auto) Eos % (Auto) Baso % (Auto) Lymph # (Auto) [place] # (Auto) Eos # (Auto) Baso # (Auto) Abs Immat Gran (auto) Absolute Neuts (auto) Absolute Nucleated RBC Nucleated RBC % Sodium 131 L Potassium 3.1 L Chloride 103 Carbon Dioxide 25 Anion Gap 3 L BUN 5 L Creatinine 0.40 L Estim Creat Clear Calc 176 Estimated GFR > 60 Glucose 100 Uric Acid 3.5 Calcium 8.5 Total Bilirubin 0.5 AST 17 ALT 17 Alkaline Phosphatase 138 H Total Protein 7.0 Albumin 3.5 Urine Color Urine Appearance Urine pH Ur Specific [place] Urine Protein Urine Glucose (UA) Urine Ketones Ur Blood (Man) Urine Nitrate Urine Bilirubin Urine Urobilinogen Ur Leukocyte Esterase Urine RBC Urine WBC Ur Squamous Epith Cells Urine Mucus U Random Total Protein Urine Creatinine Protein/Creat Ratio 2 Final Diagnosis (1) Nausea & vomiting: Code(s): R11.2 - Nausea with vomiting, unspecified Status: Acute (2) Dehydration during : Code(s): O99.280 - Endocrine, nutritional and metabolic diseases complicating , unspecified trimester; E86.0 - Dehydration Status: Acute
== END 2022-11-02 19:39 | disposition home or self-care (01) ==
PROVIDERS: Admitting Provider Obstetrics & Gynecology; Visit Provider Obstetrics & Gynecology
DX: O26.893 Other specified pregnancy related conditions, third trimester (principal); R11.2 Nausea with vomiting, unspecified; O99.283 Endocrine, nutritional and metabolic diseases complicating pregnancy, third trimester; E86.0 Dehydration; Z3A.33 33 weeks gestation of pregnancy
CPT/HCPCS: 36415; 80053; 81001; 82570; 84156; 84550; 85025; 87086; 96374; A9270; G0378; G0379; J2405; J7120

== ENCOUNTER 2022-11-05 16:03 | Observation (INO) | payer BC, MEDICAID, SELFPAY ==
--- NOTE | 2022-11-05 16:03 | OBADM ---
This patient, Kiesha Swanson, admitted to the OB room OB Post 115 for observation. Patient/family oriented to hospital policies and general routines including ID bracelet, bed and alarms, visiting hours, pain management, procedures, bathroom and other care routines, personal items, smoking policy, room service/diet, and visiting hours. Patient/Family are encouraged to report perceived risks to care and to ask questions if they do not understand what they are told or what they should do.
[2022-11-05 16:19] VITALS: BP 117/64; PULSE 89; RESP 18; TEMP 36.5
[2022-11-05 16:21] VITALS: BMI 24.1
[2022-11-05 16:39] LABS: Potassium 3.6 mmol/L (3.4-5.0)
[2022-11-05 17:14] LABS: Appearance Urine Clear (Clear); Bilirubin Urine 1+ (Negative); Blood Urine Negative (Negative); Color Urine Yellow (Yellow); Glucose Urine UA Negative (Negative); Ketones Urine Trace mg/dL (Negative); Leukocyte Esterase Ur 1+ LEU/UL (Negative); Nitrate Urine Negative (Negative); Protein Urine 1+ mg/dL (Negative); Specific Grav Ur >= 1.030 (1.001-1.035); pH Urine 6.5 (5.0-9.0)
[2022-11-05 17:18] LABS: Bacteria Urine Trace /hpf; Mucus Urine Heavy /lpf; Squamous Epithelial Cell Urine Moderate /hpf (Few); WBC Urine 16-20 /hpf
[2022-11-05 17:22] LABS: Add Urine Microscopic? YES
--- NOTE | 2022-11-06 11:04 | P.PNOB_ITS ---
OB - Triage/Final Diagnosis Visit Information Comments/Additional reasons for admission: I have assessed the risk for this patient, Kiesha Swanson, and determined that she would benefit from observation care. Evaluation Laboratory results: Laboratory Tests 11/05/22 11/05/22 16:27 17:04 Potassium 3.6 Urine Color Yellow Urine Appearance Clear Urine pH 6.5 Ur Specific [place] >= 1.030 Urine Protein 1+ H Urine Glucose (UA) Negative Urine Ketones Trace Ur Blood (Man) Negative Urine Nitrate Negative Urine Bilirubin 1+ H Urine Urobilinogen 1.0 Leukocyte Esterase Rfl 1+ H Urine RBC 3-5 H Urine WBC 16-20 H Ur Squamous Epith Cells Moderate H Urine Bacteria Trace Urine Mucus Heavy H Vital signs: Vital Signs - 24 hr 11/05/22 16:19 11/05/22 16:21 Temperature 97.7 F Pulse Rate 89 Respiratory Rate 18 Blood Pressure 117/64 Oxygen Delivery Room Air Final Diagnosis (1) contractions: Code(s): O47.00 - False labor before 37 completed weeks of gestation, unspecified trim jose Status: Acute
== END 2022-11-05 17:37 | disposition home or self-care (01) ==
PROVIDERS: Admitting Provider Obstetrics & Gynecology; Visit Provider Obstetrics & Gynecology
DX: O47.03 False labor before 37 completed weeks of gestation, third trimester (principal); O26.893 Other specified pregnancy related conditions, third trimester; R10.9 Unspecified abdominal pain; Z3A.33 33 weeks gestation of pregnancy
CPT/HCPCS: 36415; 81001; 84132; 87086; G0378; G0379

== ENCOUNTER 2022-11-15 16:01 | Observation (INO) | payer BC, MEDICAID, SELFPAY ==
--- NOTE | 2022-11-15 16:01 | OBADM ---
This patient, Kiesha Swanson, admitted to the OB room [facility] Post [facility] for observation. Patient/family oriented to hospital policies and general routines including ID bracelet, bed and alarms, visiting hours, pain management, procedures, bathroom and other care routines, personal items, smoking policy, room service/diet, and visiting hours. Patient/Family are encouraged to report perceived risks to care and to ask questions if they do not understand what they are told or what they should do.
[2022-11-15 16:15] VITALS: BMI 24.3
[2022-11-15 16:30] VITALS: TEMP 36
[2022-11-15 16:32] VITALS: BP 121/66; PULSE 92
[2022-11-15 16:52] LABS: Appearance Urine Clear (Clear); Bacteria Urine None Seen /hpf; Bilirubin Urine Negative (Negative); Blood Urine Negative (Negative); Color Urine Yellow (Yellow); Glucose Urine UA Negative (Negative); Ketones Urine Negative (Negative); Leukocyte Esterase Ur Trace LEU/UL (NEGATIVE); Nitrate Urine Negative (Negative); Non Pathogenic Casts 0-2; Protein Urine Negative (Negative); RBC Urine 0-2 /hpf (0-2); Specific Grav Ur 1.013 (1.001-1.035); Squamous Epithelial Cell Urine Occasional /hpf (Few); Urobilinogen Urine 0.2 mg/dL (<2.0); WBC Urine 0-5 /hpf (0-3); pH Urine 6.5 (5.0-9.0)
[2022-11-15 17:29] LABS: Add Urine Microscopic? YES
[2022-11-15] MEDS: TERBUTALINE SULFATE 1 MG/ML VIAL 0.25 MG SUB-Q (18:30)
--- NOTE | 2022-11-18 08:55 | PM.OBTRLD ---
OB - Triage/Final Diagnosis Visit Information Reason for evaluation: threatened labor Comments/Additional reasons for admission: I have assessed the risk for this patient, Kiesha Swanson, and determined that she would benefit from observation care. Evaluation Laboratory results: Laboratory Tests 11/15/22 16:29 Urine Color Yellow Urine Appearance Clear Urine pH 6.5 Ur Specific [place] 1.013 Urine Protein Negative Urine Glucose (UA) Negative Urine Ketones Negative Ur Blood (Man) Negative Urine Nitrate Negative Urine Bilirubin Negative Urine Urobilinogen 0.2 Ur Leukocyte Esterase Trace H Urine RBC 0-2 Urine WBC 0-5 Ur Squamous Epith Cells Occasional Urine Bacteria None seen Urine Casts 0-2
== END 2022-11-15 19:30 | disposition home or self-care (01) ==
PROVIDERS: Admitting Provider Obstetrics & Gynecology; Visit Provider Obstetrics & Gynecology
DX: O47.03 False labor before 37 completed weeks of gestation, third trimester (principal); Z3A.35 35 weeks gestation of pregnancy
CPT/HCPCS: 81001; 87086; 96372; G0378; G0379; J3105

== ENCOUNTER 2022-11-16 14:13 | Observation (INO) | payer BC, MEDICAID, SELFPAY ==
[2022-11-16 14:24] VITALS: BP 123/71; PULSE 90
[2022-11-16 14:30] VITALS: BP 119/74; PULSE 80
--- NOTE | 2022-11-16 14:42 | PM.OBTRLD ---
OB - Triage/Final Diagnosis Visit Information Reason for evaluation: threatened labor Comments/Additional reasons for admission: I have assessed the risk for this patient, Kiesha Romano Swanson, and determined that she would benefit from observation care. Evaluation Vital signs: Vital Signs - 24 hr 11/16/22 14:24 11/16/22 14:30 Pulse Rate 90 80 Blood Pressure 123/71 119/74
[2022-11-16 14:45] VITALS: BP 123/80; PULSE 87
[2022-11-16 14:47] VITALS: BMI 24.5
--- NOTE | 2022-11-16 14:48 | LDADM ---
This patient, Kiesha Swanson, was admitted to [facility] Post 117 on 11/16/22 at 14:13. Plans for labor, pain management and were discussed with patient. Patient/family oriented to hospital policies and general routines including ID bracelet, bed and alarms, visiting hours, pain management, procedures, bathroom and other care routines, personal items, smoking policy, room service/diet and guest tray routines, infant security routines, and visiting hours. Patient/Family are encouraged to report perceived risks to care and to ask questions if they do not understand what they are told or what they should do. See OBIX for further documentation.
--- NOTE | 2022-11-16 15:05 | PC.NURSE ---
NST charted in OBIX.
--- NOTE | 2022-11-16 15:05 | PC.NURSE ---
Patient admitted to L&D unit under observation orders accompanied by her mother. Patient has complaints of 7/10 contraction pain. Patient placed on FHT monitor and toco. Given marker button to press when she feels a contraction. Stomach palpated soft when patient complained of contraction pain. Patient appears calm and relaxed and is not tearful during complaints of contractions. Spoke with Dr. Conte at 1436 regarding patient and status. Discussed tracing as well as uterine irritability with occasional mild contractions noted on toco. Patient's cervix was checked with prior admission on 11/15/22 and was found to be closed. Orders given for PO hydration and 0.25 mg terbutaline subq if contractions do not improve. Patient educated on hydration and uterine irritability. Patient has no questions at this time and has water at her bedside.
--- NOTE | 2022-11-16 15:50 | PC.NURSE ---
Addendum entered by Madhavi Phillips RN 11/16/22 15:56: Patient no longer complains of feeling contractions. Patient agrees with plan of care to be discharged and follow up with her OB. Patient has no questions at this time. Original Note: Patient
== END 2022-11-16 15:55 | disposition home or self-care (01) ==
PROVIDERS: Admitting Provider Obstetrics & Gynecology; Visit Provider Obstetrics & Gynecology
DX: O47.03 False labor before 37 completed weeks of gestation, third trimester (principal); Z3A.35 35 weeks gestation of pregnancy
CPT/HCPCS: G0378; G0379

== ENCOUNTER 2022-11-21 13:48 | Observation (INO) | payer BC, MEDICAID, SELFPAY ==
[2022-11-21 14:06] VITALS: BP 120/72; PULSE 91
[2022-11-21 15:18] LABS: Appearance Urine Clear (Clear); Bacteria Urine None Seen /hpf; Bilirubin Urine Negative (Negative); Blood Urine Negative (Negative); Color Urine Yellow (Yellow); Glucose Urine UA Negative (Negative); Ketones Urine Negative (Negative); Leukocyte Esterase Ur Trace LEU/UL (Negative); Nitrate Urine Negative (Negative); Non Pathogenic Casts 0-2; Protein Urine Negative (Negative); RBC Urine 0-2 /hpf (0-2); Specific Grav Ur 1.012 (1.001-1.035); Squamous Epithelial Cell Urine None seen /hpf (Few); Urobilinogen Urine 0.2 mg/dL (<2.0); WBC Urine 0-5 /hpf
[2022-11-21] MEDS: ACETAMINOPHEN 500 MG TABLET 1000 MG PO (15:45)
[2022-11-21 15:50] LABS: Add Urine Microscopic? YES
--- NOTE | 2022-12-16 09:05 | PM.OBTRLD ---
OB - Triage/Final Diagnosis Visit Information Comments/Additional reasons for admission: I have assessed the risk for this patient, Kiesha Swanson, and determined that she would benefit from observation care. Evaluation Laboratory results: Laboratory Tests 11/21/22 14:48 Urine Color Yellow Urine Appearance Clear Urine pH 7.0 Ur Specific [place] 1.012 Urine Protein Negative Urine Glucose (UA) Negative Urine Ketones Negative Ur Blood (Man) Negative Urine Nitrate Negative Urine Bilirubin Negative Urine Urobilinogen 0.2 Leukocyte Esterase Rfl Trace H Urine RBC 0-2 Urine WBC 0-5 Ur Squamous Epith Cells None seen Urine Bacteria None seen Urine Casts 0-2 Final Diagnosis (1) False labor: Code(s): O47.9 - False labor, unspecified Status: Acute
== END 2022-11-21 16:45 | disposition home or self-care (01) ==
PROVIDERS: Admitting Provider Obstetrics & Gynecology; Visit Provider Obstetrics & Gynecology
DX: O47.1 False labor at or after 37 completed weeks of gestation (principal); Z3A.40 40 weeks gestation of pregnancy
CPT/HCPCS: 81001; A9270; G0378; G0379

== ENCOUNTER 2022-11-26 01:16 | Observation (INO) | payer BC, MEDICAID, SELFPAY ==
--- NOTE | 2022-11-26 01:30 | OBADM ---
This patient, Kiesha Swanson, admitted to the OB room Labor/Delivery/Recovery 104 for observation. Patient/family oriented to hospital policies and general routines including ID bracelet, bed and alarms, visiting hours, pain management, procedures, bathroom and other care routines, personal items, smoking policy, room service/diet, and visiting hours. Patient/Family are encouraged to report perceived risks to care and to ask questions if they do not understand what they are told or what they should do.
--- NOTE | 2022-12-16 09:29 | PM.OBTRLD ---
OB - Triage/Final Diagnosis Visit Information Comments/Additional reasons for admission: I have assessed the risk for this patient, Kiesha Swanson, and determined that she would benefit from observation care. Final Diagnosis (1) Threatened labor, antepartum: Code(s): O47.00 - False labor before 37 completed weeks of gestation, unspecified trimester Status: Acute
== END 2022-11-26 02:37 | disposition home or self-care (01) ==
PROVIDERS: Admitting Provider Obstetrics & Gynecology; Visit Provider Obstetrics & Gynecology
DX: O47.03 False labor before 37 completed weeks of gestation, third trimester (principal); Z3A.36 36 weeks gestation of pregnancy
CPT/HCPCS: 84112; G0378; G0379

== ENCOUNTER 2022-12-06 19:39 | Observation (INO) | payer BC, MEDICAID, SELFPAY ==
[2022-12-06] VITALS (16 sets, daily range): BP systolic 114–132; BP diastolic 71–83; PULSE 86–112; O2SAT 97–100; BMI 26.4
[2022-12-06 22:03] LABS: Appearance Urine Clear (Clear); Bacteria Urine None Seen /hpf; Bilirubin Urine Negative (Negative); Blood Urine Negative (Negative); Color Urine Dark Yellow (Yellow); Glucose Urine UA Negative (Negative); Ketones Urine Trace mg/dL (Negative); Leukocyte Esterase Ur Trace LEU/UL (Negative); Nitrate Urine Negative (Negative); Non Pathogenic Casts 0-2; Protein Urine Trace mg/dL (Negative); RBC Urine 0-2 /hpf (0-2); Specific Grav Ur 1.024 (1.001-1.035); Squamous Epithelial Cell Urine Occasional /hpf (Few); WBC Urine 0-5 /hpf
[2022-12-06 22:08] LABS: Add Urine Microscopic? YES
--- NOTE | 2022-12-09 14:45 | PM.OBTRLD ---
OB - Triage/Final Diagnosis Visit Information Reason for evaluation: threatened labor Comments/Additional reasons for admission: I have assessed the risk for this patient, Kiesha Swanson, and determined that she would benefit from observation care. Evaluation Laboratory results: Laboratory Tests 12/06/22 21:46 Urine Color Dark yellow Urine Appearance Clear Urine pH 6.0 Ur Specific [place] 1.024 Urine Protein Trace Urine Glucose (UA) Negative Urine Ketones Trace Ur Blood (Man) Negative Urine Nitrate Negative Urine Bilirubin Negative Urine Urobilinogen 1.0 Leukocyte Esterase Rfl Trace H Urine RBC 0-2 Urine WBC 0-5 Ur Squamous Epith Cells Occasional Urine Bacteria None seen Urine Casts 0-2
== END 2022-12-07 01:30 | disposition home or self-care (01) ==
LOC: ANHOBOP 19:43 → ANHLDR 19:43 → ANHOBOP 21:43 → ANHOBPP 12-07 01:07 → ANHLDR 12-09 14:37 → ANHOBPP 12-09 14:37
PROVIDERS: Admitting Provider Obstetrics & Gynecology; Visit Provider Obstetrics & Gynecology
DX: O47.1 False labor at or after 37 completed weeks of gestation (principal); Z3A.38 38 weeks gestation of pregnancy
CPT/HCPCS: 81001; G0378; G0379

== ENCOUNTER 2022-12-11 09:48 | Outpatient (CLI) | payer BC, MEDICAID, SELFPAY ==
[2022-12-11 11:50] VITALS: BP 125/84; PULSE 78
== END 2022-12-11 11:55 | disposition home or self-care (01) ==
LOC: ANHOBOP 12:18 → ANHLDR 12:18
PROVIDERS: Visit Provider Obstetrics & Gynecology
DX: O42.90 Premature rupture of membranes, unspecified as to length of time between rupture and onset of labor, unspecified weeks of gestation (principal); Z3A.00 Weeks of gestation of pregnancy not specified
CPT/HCPCS: 59025; 84112; 99199

== ENCOUNTER 2022-12-11 17:48 | Inpatient (IN) | payer BC, MEDICAID, SELFPAY ==
[2022-12-11 21:39] VITALS: BMI 25.2
[2022-12-11 22:00] LABS: Basophils Percent Auto 0.3 % (0.2-1.2); Eosinophils Percent Auto 0.1 % (0-4.4); Hematocrit 33.4 % (37.0-47.0); Hemoglobin 10.1 g/dL (12.0-15.0); Immature Granulocyte Absolute 0.08 K/mm3 (0.00-0.031); Immature Granulocyte Percent A 0.5 % (0-0.5); Lymphocytes Absolute Auto 3.64 K/mm3 (0.9-3.2); Lymphocytes Percent Auto 24.6 % (18.3-44.2); Mean Corpuscular HGB Conc 30.2 g/dl (32-36); Mean Corpuscular Hemoglobin 26.2 pg (26-34); Mean Corpuscular Volume 86.5 fl (80-100); Monocytes Absolute Auto 0.7 K/mm3 (0.1-0.6); Monocytes Percent Auto 4.8 % (2.6-8.5); Neutrophils Absolute Auto 10.3 K/mm3 (1.3-6.7); Neutrophils Percent Auto 69.7 % (45.5-73.1); Platelet Count Result 285 k/mm3 (150-375); Red Blood Count 3.86 M/mm3 (4.2-5.4); White Blood Count 14.8 K/mm3 (4.5-10.0)
--- NOTE | 2022-12-11 22:20 | WPDANESEPPF ---
Anes - Initial Pre Proc Eval Procedure: Labor Epidural Date/Time: 12/11/22 22:20 Surgeon: Sheldon Winn MD Pre Op Diagnosis: Labor Pain Pre Op Diagnosis: Contractions Patient Data Age: 22 Gender: F Height: 1.7 m Weight: 73 kg Last Vital Signs O2 Del Method Room Air 12/11/22 21:39 Allergies Allergy/AdvReac Type Severity Reaction Status Date / Time tramadol Allergy Unknown Hives Verified 12/11/22 09:02 Home Medications Medication Instructions Recorded Confirmed Type prenat.vits,ho,nqy-kjjz-vyydh 1 tablet PO HS 05/14/22 12/11/22 History ondansetron 4 mg disintegrating 4 mg PO Q6H NAUSEA #20 tabs 09/17/22 12/11/22 Rx tablet sertraline 100 mg tablet 100 mg PO HS 11/02/22 12/11/22 History ferrous sulfate 325 mg (65 mg 325 mg PO HS 11/05/22 12/11/22 History iron) tablet Laboratory Tests 12/11/22 12/11/22 21:53 21:54 WBC 14.8 K/mm3 H K/mm3 (4.5-10.0) RBC 3.86 M/mm3 L M/mm3 (4.2-5.4) Hgb 10.1 g/dL L g/dL (12.0-15.0) Hct 33.4 % L % (37.0-47.0) MCV 86.5 fl fl (80-100) MCH 26.2 pg pg (26-34) MCHC 30.2 g/dl L g/dl (32-36) RDW 17.0 % H % (11.5-14.5) Plt Count 285 k/mm3 k/mm3 (150-375) MPV 10.0 fl fl (7.4-10.4) Immature Gran % (Auto) 0.5 % % (0-0.5) Neut % (Auto) 69.7 % % (45.5-73.1) Lymph % (Auto) 24.6 % % (18.3-44.2) [place] % (Auto) 4.8 % % (2.6-8.5) Eos % (Auto) 0.1 % % (0-4.4) Baso % (Auto) 0.3 % % (0.2-1.2) Lymph # (Auto) 3.64 K/mm3 H K/mm3 (0.9-3.2) [place] # (Auto) 0.7 K/mm3 H K/mm3 (0.1-0.6) Eos # (Auto) 0.0 K/mm3 K/mm3 (0-0.3) Baso # (Auto) 0.0 K/mm3 K/mm3 (0.0-0.1) Abs Immat Gran (auto) 0.08 K/mm3 H K/mm3 (0.00-0.031) Absolute Neuts (auto) 10.3 K/mm3 H K/mm3 (1.3-6.7) Absolute Nucleated RBC 0.0 K/mm3 K/mm3 (0.0-0.012) Nucleated RBC % 0.0 % % (0.0-0.2) RPR Pending Patient hx anesthesia problems: none Family hx anesthesia problems: none Results Review: All pre-operative results and documents have been reviewed as part of the pre-operative evaluation. [facility] Past Medical History Medical History Abdominal pain Anxiety Asthma Depression History of vaginal delivery x 1 Irritable bowel uterine contractions in third trimester, antepartum Surgical History Surgical History Hx laparoscopic cholecystectomy [place] teeth removed Family History Family History Grandparent Diabetes mellitus Acute myocardial infarction Hypertension Grandparent Diabetes mellitus Acute myocardial infarction Heart disease Hypertension Grandparent Diabetes mellitus Degenerative disc disease Arthritis Fibromyalgia Sibling Stillborn, normal Sibling Anxiety Grandparent Stented coronary artery Hx of CABG Social History Social History Smoking status: Never smoker Tobacco type: e-cigarettes/vaping Second hand tobacco smoke exposure: No Additional smoking assessment comments: I VAPE ALL DAY Substance use: current Substance use type: marijuana Lack of Transportation: No Lack of Food: Never True Current Housing: I Have Housing Concerned About Future Housing: No Difficulty Paying Gas/Electric Bills: No Difficulty Paying for Meds: No Currently Unemployed: No Education: High School Diploma/GED Difficulty w/ Childcare or Family Care: No Living arrangements: with family Gender identity (if verbalized by the patient): Female Sexual Orientation (if Verbalized by the Patient): Straight or Heterosexual Spiritual care concerns: No Anes - Eval Final PreProcedure Day of Procedure 12/11/22 2
[2022-12-12] VITALS (75 sets, daily range): BP systolic 94–134; BP diastolic 49–92; PULSE 67–198; RESP 16–18; TEMP 36–36.7; O2SAT 96–100
[2022-12-12] MEDS: LACTATED RINGERS 1,000 ML 125 ML IV CONT ×3 (01:20→04:30)
--- NOTE | 2022-12-12 01:37 | PM.IMHP ---
H&P: HPI History of Present Illness Date/Time: 12/12/22 01:37 Chief Complaint: Contractions Narrative: She was admitted for contractions. She was seen earlier today for SROM check which was negative. Cervix was 3. She was seen subsequently in office and was 4 and she returned several hours after that and walked and had cervical change to 5. She was admitted in labor. She lives 45 minutes away and has a history of fast active labor. She is at 39 weeks by LMP 03/14/22 with an EDC 12/19/22. Consistent with a first trimester ultrasound. PNC significant for vaping. She did eventually take Wellbutrin and this did help her to decrease vaping to 1-2 per day. She also had third trimester IUGR with AC 6%. This was followed and did resolve. She has been getting surveillance testing which was reassuring. labs reviewed. GBS neg. Review of Systems Review of Systems: All systems reviewed & are unremarkable except as noted in HPI and below Constitutional: Constitutional: Reports no additional constitutional complaints and Denies headache(s) Eyes: Eyes: Denies spots in vision ENT: Reports system reviewed and no additional complaints, except as documented and Denies headache(s) Cardiovascular: Cardiovascular: Denies chest pain and Denies dyspnea Respiratory: Respiratory: Denies dyspnea Gastrointestinal: Gastrointestinal: Reports no additional gastrointestinal complaints Genitourinary: Genitourinary: Reports amenorrhea Musculoskeletal: Musculoskeletal: Reports no additional musculoskeletal complaints Integumentary/Breasts: Skin/Breast: Denies breast mass and Denies rash Neurologic: Denies headache(s) Psychiatric: Psychiatric: Reports no additional psychiatric complaints [facility] Past Medical History Medical History Abdominal pain Anxiety Asthma Depression History of vaginal delivery x 1 Irritable bowel uterine contractions in third trimester, antepartum Surgical History Surgical History Hx laparoscopic cholecystectomy [place] teeth removed Family History Family History Grandparent Diabetes mellitus Acute myocardial infarction Hypertension Grandparent Diabetes mellitus Acute myocardial infarction Heart disease Hypertension Grandparent Diabetes mellitus Degenerative disc disease Arthritis Fibromyalgia Sibling Stillborn, normal Sibling Anxiety Grandparent Stented coronary artery Hx of CABG Social History Social History Smoking status: Never smoker Tobacco type: e-cigarettes/vaping Second hand tobacco smoke exposure: No Additional smoking assessment comments: I VAPE ALL DAY Substance use: current Substance use type: marijuana Lack of Transportation: No Lack of Food: Never True Current Housing: I Have Housing Concerned About Future Housing: No Difficulty Paying Gas/Electric Bills: No Difficulty Paying for Meds: No Currently Unemployed: No Education: High School Diploma/GED Difficulty w/ Childcare or Family Care: No Living arrangements: with family Gender identity (if verbalized by the patient): Female Sexual Orientation (if Verbalized by the Patient): Straight or Heterosexual Spiritual care concerns: No Meds Home Medications and Allergies Home Medications Medication Instructions Recorded Confirmed Type prenat.vits,ho,lkd-umbx-tyxug 1 tablet PO HS 05/14/22 12/11/22 History ondansetron 4 mg disintegrating 4 mg PO Q6H NAUSEA #20 tabs 09/17/22 12/11/22 Rx tablet sertraline 100 mg tablet 100 mg PO HS 11/02/22 12/11/22 History ferrous sulfate 325 mg (65 mg 325 mg PO HS 11/05/22 12/11/22 History iron) tablet Allergies Allergy/AdvReac Type Severity Reaction Status Date / Time tramadol Allergy Unknown Hiv
--- NOTE | 2022-12-12 01:48 | PM.OBPNLAB ---
Pain Control Date/time seen: 12/12/22 1245 FHT 120, cat 1, cervix /-1 AROM clear.
[2022-12-12] MEDS: ONDANSETRON INJ 4 MG/2 ML VIAL IV PUSH (02:05)
--- NOTE | 2022-12-12 02:10 | WPDANESEPN ---
Anes - Epidural Procedure Note Date/Time: 12/12/22 02:10 Consent: I have discussed with the patient/family/POA, the placement of an epidural catheter and the use of epidural narcotic/local anesthetic for labor analgesia and/or postoperative pain management, including associated potential risks, benefits, complications and side effects. I have discussed alternative methods of labor analgesia and/or postoperative pain management. The patient/family/POA, understand(s) and wish(es) to proceed with epidural narcotic/local anesthetic for labor analgesia and/or postoperative pain management. Time-Out: A pre-procedural Time-Out was completed immediately before starting the procedure and confirmed: Patient Identification, Site, Procedure, Patient Position and the Availability of Requisite Equipment. Clinical Indications: Labor pain Epidural Insertion Note Patient position: sitting Skin prep: chlorhexidine and sterile drape Needle: 18g Tuohy-Schliff Catheter: 20g Unstyleted Technique: Loss of resistance. Level of insertion: L3/4 Catheter skin telma (cm): 5 Length in epidural space (cm): 10 Skin anesthesia: lidocaine 1% Test dose: 1.5% Lidocaine with 1:[id number] Epi, negative for subarachnoid Inj and negative for intravascular Inj Time of test dose: 01:52 Observations: tolerated well Complications: none
--- NOTE | 2022-12-12 02:10 | PM.OBPNLAB ---
Pain Control Date/time seen: 12/12/22 02:10 Comments: FHT 120 , cat 2, /-1. Epidural placed.
[2022-12-12] MEDS: OXYTOCIN 30 UNITS/NS 500 ML 30 UNITS/500 ML BAG 999 UNITS IV CONT (04:31)
--- NOTE | 2022-12-12 04:42 | PM.OBPRVD ---
OB - Delivery Note Procedure Delivery date: 12/12/22 Procedure: Spontaneous vaginal delivery Events: Intrauterine Growth Restriction (IUGR) (third trimester, resolved) Delivery augmentation: Rupture of Membranes Delivery monitor: External FHT Route of delivery: Laceration Description: Perineal - 1st Degree Delivery repair: vicryl (3.0 vicryl) Specimen: No Quantitative Blood Loss (ml): 200 Anesthesia type: Epidural Disposition: Floor Narrative: She was admitted for labor after having cervical change. Contractions decreased and she had amniotomy. She requested epidural which was placed. She dilated to complete. She delivered a female infant over intact perineum. Infant suctioned at perineum with bulb. The anterior shoulders and the rest of infant delivered. Infant placed on maternal abdomen. Delayed cord clamping for 60 sec, cord apulsatile, and doubly clamped and cut. Infant vigorously crying. Pitocin started. Placenta delivered spontaneously and intact. She had a small first degree separation at introitus repaired with a figure of eight of 3.0 vicryl. Baby Date of : 12/12/22 Time of : 04:27 Weeks of gestation at delivery: 39 Infant gender: Female presentation: vertex position: Right Occiput Anterior Placenta delivery description: Spontaneous Cord Vessel Description: 3 Vessels, Clamped/Cut and Delayed Cord Clamping score one minute: 8 score five minutes: 9 AMG Delivery Billing Delivery Delivery: Delivery Charge
[2022-12-12] MEDS: OXYTOCIN 30 UNITS/NS 500 ML 30 UNITS/500 ML BAG 125 UNITS IV CONT (05:00)
[2022-12-12] MEDS: WITCH HAZEL 40 PADS 1 PAD TOPICAL (06:56)
[2022-12-12] MEDS: BENZOCAINE 20% AER SPR (*SP) 56 GM CAN 1 SPRAY TOPICAL (06:56)
--- NOTE | 2022-12-12 07:14 | OBPPTRN ---
Patient transferred to post room # 281 via wheelchair accompanied by fob and . PT introductions made and plan of care discussed per post , pain management, breast feeding, daily care activities. PT oriented to unit, room, information board, rooming in, admission packet and security measures. PT received such instructions per one to one discussion, mom baby care guide and demonstrations this shift. Patient verbalizes understanding.
[2022-12-12 07:47] LABS: Amphetamine Screen Urine Negative (Negative); Barbiturate Screen Urine Negative (Negative); Benzodiazepines Screen Urine Negative (Negative); Cannabinoid Screen Urine Positive (Negative); Cocaine Screen Urine Negative (Negative); Methadone Screen Urine Negative (Negative); Opiate Screen Urine Negative (Negative); Phencyclidine Screen Urine Negative (Negative)
--- NOTE | 2022-12-12 13:44 | P.PNOB_ITS ---
OB - PN: Subj Subjective Date/time seen: 12/12/22 13:44 Patient comments: no complaints, pain well controlled and tolerating diet Ethel feeding status: exclusively breast feeding Narrative: patient doing well this AM. No complaints. Pain is well controlled. She reports minimal bleeding. She is ambulating and voiding without difficulty. She is tolerating PO. She denies N/V, fever, chills. OB - PN: Obj Data Labs 12/11/22 21:54 Labs: Laboratory Results - last 24 hr 12/11/22 12/11/22 12/12/22 21:53 21:54 07:11 WBC 14.8 H RBC 3.86 L Hgb 10.1 L Hct 33.4 L MCV 86.5 MCH 26.2 MCHC 30.2 L RDW 17.0 H Plt Count 285 MPV 10.0 Immature Gran % (Auto) 0.5 Neut % (Auto) 69.7 Lymph % (Auto) 24.6 [place] % (Auto) 4.8 Eos % (Auto) 0.1 Baso % (Auto) 0.3 Lymph # (Auto) 3.64 H [place] # (Auto) 0.7 H Eos # (Auto) 0.0 Baso # (Auto) 0.0 Abs Immat Gran (auto) 0.08 H Absolute Neuts (auto) 10.3 H Absolute Nucleated RBC 0.0 Nucleated RBC % 0.0 Urine Opiates Screen Negative Urine Methadone Screen Negative Ur Barbiturates Screen Negative Ur Phencyclidine Scrn Negative Ur Amphetamine Screen Negative U Benzodiazepines Scrn Negative Urine Cocaine Screen Negative U Cannabinoids Screen Positive A Blood Type O Positive Antibody Screen Negative OB - PN A/P Plan day: 1 Plan: routine care Comments: patient doing well H/H stable afebrile, vital signs stable Patient has no questions or concerns today Patient delivered at 12:57 a.m., patient desires circumcision. Risks, benefits, alternatives discussed. Maternal consent obtained. Will plan for infant circumcision tomorrow continue routine care Time Spent With Patient Time: Total time spent is greater than 50% in coordination of care (as documented) at patient's floor/unit and/or counseling patient: Time with patient: less than 15 minutes Review of Systems Review of Systems: All systems reviewed & are unremarkable except as noted in HPI and below Exam Const: General: comfortable and no acute distress Resp: Effort & Inspection: normal respiratory effort Cardio: Rate: regular rate GI: GI Palp: Yes Soft to palpation and No Tenderness to palpation present (GI) Auscultation: normal bowel sounds Other: fundus firm and below umbilicus. Psych: Affect: normal affect
[2022-12-12] MEDS: DOCUSATE SODIUM 100 MG CAPSULE PO ×2 (14:03→17:56)
[2022-12-12] MEDS: MULTIVIT/MIN/PREN/FOL AC/IRON TABLET 1 TAB PO (14:03)
[2022-12-12] MEDS: ACETAMINOPHEN 325 MG TABLET 650 MG PO ×2 (14:04→19:46)
[2022-12-12] MEDS: IBUPROFEN 600 MG TABLET PO ×2 (14:04→19:46)
[2022-12-12 15:09] LABS: Rapid Plasma Reagin Non-Reactive (NonReactive)
--- NOTE | 2022-12-12 16:33 | PC.NURSE ---
[id number] Introductions were made, then consulted with patient to assess needs related to . Mother led the conversation with her?plans to feed?her infant and the?experience so far. Resources provided for inpatient and outpatient services with the mom/baby guide and name written on the white board. Mother voiced understanding of information and will call if there is a request for assistance. Reported to the primary RN. 0945- Mother with no history works well with her infant with encouragement and education. Encouraged understanding of the benefits of skin to skin (demonstrating unwrapping and placing upright on her chest), stimulating with massage touch, changing positions to encourage wakefulness, how to watch for early feeding cues, responsive feeding, feeding on demand (aiming for 8-12 times in 24 hours, about every 2-3 hours), milk production, building/maintaining a milk supply, duration of feeding, signs of adequate intake/output and how to record on the feeding sheet. Reviewed positioning and ear, shoulder, hip alignment, supporting the breast to facilitate a deep latch, asymmetrical latch (off-center), leading with the chin with a big, open, wide gape and body close to mother. Infant was attempted to the breast after skin to skin and allowing to crawl to the breast. Infant has a small mouth and mother has extremely soft breast. opens her mouth with tongue down rarely. Most of the time opens mouth with the tongue in the middle of her mouth and is unable to latch and pull the breast into her mouth. Nipple care reviewed with optimal latch and good positioning. Reviewed good handwashing when or touching the breast/nipples to prevent infection. Mother was encouraged to hand express breast milk. 5mls expressed breast milk was spoon fed to the allowing her to lap it from the spoon with her tongue. Resources used to facilitate learning were used with the tool, mom and baby guide. Mother voiced understanding of skin to skin, stimulating with massage touch, responsive feedings, hand expressed colostrum, talking to to encourage if it has been 2 -2.5 hours since the start of the last , to call if infant does not latch, or if there is discomfort with . Resources provided for inpatient/outpatient with the feeding sheet and the mom/baby guide. Parents voiced understanding of information, demonstrated learning and will call if there is a request for assistance. Reported to the primary RN.
[2022-12-13] MEDS: ACETAMINOPHEN 325 MG TABLET 650 MG PO (04:30)
[2022-12-13] MEDS: IBUPROFEN 600 MG TABLET PO (04:30)
[2022-12-13 05:37] LABS: Hematocrit 30.3 % (37.0-47.0); Hemoglobin 9.1 g/dL (12.0-15.0)
--- NOTE | 2022-12-13 07:15 | WPDANLDPN2 ---
Anes-Prog Note L&D Date/Time: 12/13/22 07:15 Comfortable throughout: labor and delivery Neuraxial method: epidural Epidural/Spinal procedure site: clean & non-tender Neuro status: Neuro function grossly intact. Cardiovascular status: normal Respiratory status: normal Airway patency: baseline Mental status: baseline Post-Op hydration status: normal Vital Signs: Last Vital Signs Temp 36.7 C 12/12/22 19:40 Pulse 68 12/12/22 19:40 Resp 16 12/12/22 19:40 BP 111/75 12/12/22 19:40 Pulse Ox 100 12/12/22 16:00 O2 Del Method Room Air 12/12/22 07:15 Pain score (VAS): 1 I/O: Intake & Output 12/12/22 12/12/22 12/13/22 15:59 23:59 07:59 Intake Total 1330 500 Balance 1330 500 Post-procedural complaints: none Patient feedback: Patient satisfied with anesthetic care.
[2022-12-13 08:10] VITALS: BP 114/68; PULSE 64; RESP 16; TEMP 36.3; O2SAT 99
[2022-12-13] MEDS: POLYSACCHARIDE IRON COMPLEX 150 MG CAPSULE PO (11:35)
[2022-12-13] MEDS: DOCUSATE SODIUM 100 MG CAPSULE PO (11:35)
[2022-12-13] MEDS: MULTIVIT/MIN/PREN/FOL AC/IRON TABLET 1 TAB PO (11:35)
--- NOTE | 2022-12-13 12:20 | PM.OBDSVD ---
DS: Admitting Diagnosis Discharge Date 12/13/22 Admitting Diagnosis intrauterine at term labor OB - DS: Summary OB Procedures : None OB Procedures Intrapartum: Spontaneous Vag Delivery OB Procedures: : None Status at Discharge Functional status at discharge: independent ambulation Overall status at discharge: patient is back to baseline Time Spent with Patient Time attestation: Total time spent providing and/or coordinating discharge services: Time spent: Less than 30 minutes Exam Const: General: comfortable and no acute distress Resp: Effort & Inspection: normal respiratory effort Auscultation: clear to auscultation bilaterally Cardio: Rate: regular rate GI: GI Palp: Yes Soft to palpation Auscultation: normal bowel sounds Other: Fundus firm below umbilicus Psych: Appearance: grossly normal Mental Status: mental status grossly normal Affect: normal affect DS: Data Data Completed and Pending Labs on day of discharge: Labs from last 24 hours 12/13/22 12/11/22 05:25 21:53 Hgb 9.1 L Hct 30.3 L RPR Non-reactive Discharge Plan Discharge Attending physician on discharge: Sheldon Winn Discharging Clinician: Dk Nunez Patient Disposition: Home, Self-Care Activity: as tolerated and pelvic rest Diet: regular Patient Instructions: Antibiotic Form, Vaginal Delivery (DC) Stand Alone Forms: General Discharge Information Follow-up/Referrals: Sheldon Winn MD [Physician] - Discharge Medications: New ibuprofen 600 mg tablet 600 mg PO Q6H PRN (Reason: pain) Qty: 30 0RF acetaminophen 500 mg tablet 500 mg PO Q6H PRN (Reason: pain) Qty: 30 0RF Continued prenat.vits,ho,yxn-nupn-updho Tablet 1 tablet PO HS ondansetron 4 mg Tablet,Disintegrating 4 mg PO Q6H Qty: 20 0RF sertraline 100 mg tablet 100 mg PO HS ferrous sulfate 325 mg (65 mg iron) tablet 325 mg PO HS Date of admission: 12/11/22 17:48 Primary Care Provider: PHYSICIAN,KITCHEN STEWARD Admitting Provider: Sheldon Winn Attending physician on admission: Sheldon Winn Condition: Stable
--- NOTE | 2022-12-13 12:41 | PC.NURSE ---
[id number] Purposefully rounded to assess mothers needs. Mother is having difficulty latching with a small mouth to open wide with the tongue down and take breast into her mouth. Mother states she does not want to breastfeed, however; she has fears of not finding formula and feels she doesn't have a choice. Mothers breast are extremely soft. With infant not demonstrating a big, open wide gape and not able to bring the breast into the mouth, then there is not effective . Mother has decided to try the nipple shield. There is caution with this as the breast are very soft and the shield might not apply. Mother agrees to attempt. When RN came back to the room, patient was crying related to conflict with her mother over the phone regarding a ride and where to. After listening to the mother discuss her situation and mother was ready to proceed, we began the education and trial with the Nipple shield. Nipple shield provided to mother due to ineffectively . Reviewed good handwashing, cleaning the nipple shield and application. Discussed with mom the nipple shield precautions, possible complications associated with the risks and benefits. Reviewed practicing with a nipple shield, then without and how to protect the milk supply and production. Nipple shield is applied to the breast and very easily falls off after properly applying it. Mother has been hand expressing the first 24 hours and we discuss stimulating with consistent pumping. Breast pump provided due to ineffective . Instructions given on cleaning, care, usage, that there should be no pain, pumping schedule for milk production, collection, and storage of human milk. Parents are encouraged to record pumping schedule on the feeding sheet. Patient was assessed for correct placement, flange size (21mm), to pump for comfort and nipple stretching/stimulation for adequate milk production every 3 hours (8 times in 24 hours) 1-2 times at night. Mother states that the pumping hurts on the lowest possible setting and mother removes the pumps after 5 min. Nipples are almost purple in color and we discuss options to feed her infant. Mother is able to hand express without pain. is supplemented with formula this morning. Mom and baby guide referred to as a resource for outpatient services, community resources with [facility] and when to call a provider. Mom voiced understanding of the importance of hand expression, nipple stimulation, milk production and a consistent pumping schedule. Father of baby and are sleeping. Mother was encouraged to rest. Mother voiced understanding of calling for assistance.
[2022-12-16 10:59] VITALS: BP 110/67; PULSE 79; RESP 16; TEMP 36.9; O2SAT 100
== END 2022-12-13 15:30 | disposition home or self-care (01) | DRG 807 ==
LOC: ANHLDR 20:46 → ANHOB2 12-12 10:03 → ANHLDR 12-16 11:45 → ANHOB2 12-16 11:45
PROVIDERS: Admitting Provider Obstetrics & Gynecology; Visit Provider Student in an Organized Health Care Education/Training Program
DX: O36.5930 Maternal care for other known or suspected poor fetal growth, third trimester, not applicable or unspecified (principal); Z37.0 Single live birth; Z3A.39 39 weeks gestation of pregnancy; O70.0 First degree perineal laceration during delivery
CPT/HCPCS: 36415; 80307; 85014; 85018; 85025; 86592; 86850; 86900; 86901; A9270; J2405; J2590; J2795; J7120